=== PATIENT | female | born 1935 | race Caucasian/White ===

== ENCOUNTER 2017-11-18 11:31 | Emergency (ER) | payer MEDICARE, BC ==
[~2017-11-18] VITALS: Ht 165.1 cm; Wt 61.4 kg
[~2017-11-18 11:31] MED LIST: CARAFATE1 G PO; DIGESTIVE ENZYME; MAG-OXIDE400 MG PO; MULTI-DAY VITAM1 TAB PO; PRILOSEC20 MG PO; PROBIOTIC; SLOW-MAG 64 MG64 MG PO; VITAMIN D5000 UNIT PO
[2017-11-18 11:35] VITALS: Ht 165.1 cm; Wt 61.4 kg
[2017-11-18 12:07] LABS: BASOPHILS 0.1 % (0-2); EOSINOPHILS 0.5 % (0-7); HEMATOCRIT 41.9 % (36.0-48.0); IMMATURE GRANULOCYTES 0.1 % (0-5); LYMPHOCYTES 13.6 % (15-50); MCH 32.2 pg (26.0-34.0); MCHC 33.4 g/dL (31.0-37.0); MCV 96.3 fL (80.0-100.0); MEAN PLATELET VOLUME 9.4 fL (7.4-10.4); MONOCYTES 4.1 % (2-11); NEUTROPHILS 81.6 % (40-80); PLATELET COUNT 265 10x3/uL (130-400); RBC 4.35 10x6/uL (4.00-5.40); RDW 13.7 % (11.5-14.5); WBC 8.6 10x3/uL (4.8-10.8)
[2017-11-18 12:21] LABS: ALBUMIN 3.4 g/dL (3.4-5.0); ALKALINE PHOSPHATASE 92 U/L (46-116); ALT (SGPT) 29 U/L (10-68); BILIRUBIN - TOTAL 0.67 mg/dL (0.2-1.3); CALC OSMOLALITY 282 mosm/kg (275-300); CARBON DIOXIDE 26.4 mmol/L (21.0-32.0); CHLORIDE - SERUM 106 mmol/L (98-107); CREATININE - SERUM 0.7 mg/dL (0.6-1.3); GLUCOSE 108 mg/dL (74-106); POTASSIUM - SERUM 3.6 mmol/L (3.5-5.1); PROTEIN - SERUM 6.9 g/dL (6.4-8.2); SODIUM 141 mmol/L (136-145); UREA NITROGEN 15 mg/dL (7-18); eGFR NON AFRICAN AMERICAN 85 mL/min (90-120)
[2017-11-18 15:54] VITALS: BP 133/74
== END 2017-11-18 15:55 | disposition home or self-care (01) ==
LOC: D.ER 11:31
PROVIDERS: Family Medicine
DX: F43.0 Acute stress reaction (principal); R10.13 Epigastric pain; R00.0 Tachycardia, unspecified